=== PATIENT | male | born 1980 | race Caucasian/White ===

== ENCOUNTER → 2016-10-28 | Outpatient (CLI) | payer BC ==
--- NOTE | 2016-10-31 08:43 | RADIOLOGY REPORT PS360 ---
MRI-LOW EXT ANY JOINT W/O-RT HISTORY: Right ankle pain, sprain, strain posteriorly, Achilles tendinitis ACHILLES TENDINITIS, ACUTE RIGHT ANKLE PAIN ORDERING PHYSICIAN: GIUSEPPE HOWARD APRN PATIENT AGE: 36 years COMPARISON: None TECHNIQUE: Standard multiplanar multiecho sequences are performed without contrast. FINDINGS: The Achilles tendon has an unremarkable appearance. No fracture or dislocation. No obvious bone bruise.. There is some heterogeneous isointense T1 and increased T2 signal along the posterior aspect of the ankle joint with some heterogeneous signal intensity of the superior aspect of the posterior talo fibular ligament consistent with sprain or partial tear of this ligament. The anterior talofibular ligament appears intact. There is a small fluid collection posterior to the talocalcaneal joint measuring 17 mm AP and 8 mm cephalad to caudad consistent with bursitis. IMPRESSION: 1. Suspect partial tear versus sprain of the posterior talofibular ligament. 2. Bursitis with fluid collection along the posterior aspect of the talo calcaneal joint 3. The Achilles tendon appears intact
== END ==
LOC: RAD 10-26 16:00
DX: M76.61 Achilles tendinitis, right leg (principal); M25.571 Pain in right ankle and joints of right foot

== ENCOUNTER 2017-04-22 12:18 | Emergency (ER) | payer BC ==
[~2017-04-22] VITALS: Ht 177.8 cm; Wt 120.2 kg
--- OUTSIDE RECORDS SUMMARY | 2017-04-22 12:22 | External Medical Summary Rpt | CCD ---
Author Author , TIM DUMONT Address Unknown Phone Purpose Continuity of Care Document - through 2016
--- OUTSIDE RECORDS SUMMARY | 2017-04-22 12:22 | External Medical Summary Rpt | CCD ---
Demographics Preferred Language Yakut Marital Status Unknown Amish Affiliation Unknown Race Unknown Ethnic Group Unknown Author Author , TIM DUMONT Address Unknown Phone Immunization No patient found.
--- OUTSIDE RECORDS SUMMARY | 2017-04-22 12:22 | External Medical Summary Rpt | CCD ---
Author Author [employer] Address Unknown Phone Unavailable Purpose Continuity of Care Document - through 2016
--- OUTSIDE RECORDS SUMMARY | 2017-04-22 12:22 | External Medical Summary Rpt | CCD ---
Demographics Preferred Language Tajik Marital Status Unknown Druze Affiliation Unknown Race Unknown Ethnic Group Unknown Author Author , TIM DUMONT Address Unknown Phone Immunization No patient found.
--- OUTSIDE RECORDS SUMMARY | 2017-04-22 12:22 | External Medical Summary Rpt ---
Author Author TIM James, [facility] Organization [employer] Address Unknown Phone Unavailable
--- OUTSIDE RECORDS SUMMARY | 2017-04-22 12:22 | External Medical Summary Rpt | CCD ---
Author Author , TIM DUMONT Address Unknown Phone [email or web address] Purpose Continuity of Care Document - through 2016
[2017-04-22] MEDS ORDERED: ZITHROMAX Z-PA250 M2 PO (12:39)
[2017-04-22] MEDS ORDERED: FLONASE ALLERG9.9 ML NS (12:39)
[2017-04-22] MEDS ORDERED: TESSALON PERLE100 M1 PO (12:39)
--- NOTE | 2017-04-22 12:40 | Urgent Treatment Center Report ---
History of Present Issue Date/Time Seen by Provider 04/22/17 1235 Visit Reason Pt arrived: Presenting Problem: Location if Accident: Onset of symptoms date/time:/ or onset unknown for: Have you (or family members/close friends) recently traveled outside the [place]? If Yes, where/when: Have you had exposure to infectious disease within the past month? TB? Other? Specify: Source patient, RN notes reviewed Exam Limitations no limitations Comment 36-year-old male presents with body aches, chills, cough, nasal congestion with green discharge and headaches. ALLERGIES Coded Allergies: ibuprofen (04/22/17) History Medical History General Angina: No MS: No Hypertension? No Hyperlipidemia? No CHF? No COPD? No Asthma? No CVA? No Seizures? No Diabetes? No GB Disease: No MRSA? No TB? No Cancer? No Surgical Hx Previous Surgery?N Social History Alcohol Alcohol: No Review of Systems All Other Systems Reviewed and Negative ENT see HPI, nose discharge, nose congestion. Respiratory see HPI, cough Physical Exam Vital Signs Vital Signs Date Time Temp Pulse Resp B/P Pulse O2 O2 Flow FiO2 Ox Delivery Rate 04/22 1228 98.2 86 20 127/84 100 - WBC >12,000 or <4,000 or 10% bands? 2 or more SIRS Criteria Met? B/P:127/84 MAP:98 Creatinine >2.0? UA output<0.5ml/kg/hr for 2 hrs? Platelet count >100,000? Lactate >2.0mmol/1? INR >1.2 or PTT > than 60 sec? Evidence of Organ Dysfunction? Provider documented clinical suspician of infection? Sepsis Criteria Count: 1 Sepsis Risk: General Appearance normal appearance, no apparent distress Eye Exam - bilateral eye normal exam, bilateral eye PERRL, bilateral eye EOMI Ear, Nose, Throat hearing grossly normal, sinus pain/drainage, nasal congestion, tonsillar exudate Neck normal inspection, non-tender, full range of motion Respiratory Status Yes: trachea midline, chest symmetrical, non tender chest. No: respiratory distress. Lung Sounds bilateral: normal breath sounds, lungs clear. Cardiovascular normal exam, regular rate/rhythm, no peripheral edema Neurologic alert, normal exam, oriented x 3 Medical Decision Making LABS/Meds/Orders Pt receiving controlled substance in ED? No Departure Departure Time of Disposition 1236 Disposition DC Home or Self Care(routine) Clinical Impression Primary Impression: Sinusitis Qualifiers: Sinusitis location: maxillary Chronicity: acute Recurrence: non- recurrent Qualified Code: J01.00 - Acute maxillary sinusitis, unspecified Secondary Impressions: Cough Condition STABLE Referrals Madi Herrera MD (Family) Patient Instructions DI for Sinusitis Additional Instructions Tylenol as needed for fever/comfort follow-up with PCP this week Medications as ordered Symptoms worsen or do not improve return or be seen in the ER Increase fluids Discharge Counseling Counseled pt/family regarding diagnosis, medications/RX, home care, follow up needs Prescriptions Current Visit Scripts Azithromycin (Zithromax) 250 MG PO DAILY 5 Days USE DIRECTED. Benzonatate (Tessalon Perle) 100 MG PO BIDP PRN COUGH 5 Days Fluticasone Propionate (Flonase Allergy Relief) 9.9 ML NS DAILY 14 Days at [id number]
[2017-04-22 13:00] VITALS: BP 127/84
[2017-04-22 14:01] LABS: UTC STREP SCREEN NOT DETECTED (NOTDETECTED)
== END 2017-04-22 13:01 | disposition home or self-care (01) ==
LOC: UTC 12:18
PROVIDERS: Nurse Practitioner Family
DX: J01.00 Acute maxillary sinusitis, unspecified (principal); R05 Cough; Z88.6 Allergy status to analgesic agent

== ENCOUNTER → 2017-06-08 | Outpatient (CLI) | payer BC ==
[~2017-06-08] MED LIST: FLONASE ALLERG9.9 ML NS; TESSALON PERLE100 M1 PO; ZITHROMAX Z-PA250 M2 PO
[2017-06-08 16:53] LABS: BUN 12 mg/dL (7-18); GFR (ESTIMATED) 95 ML/MIN (>60); PROSTATE-SPECIFIC AG SCREEEN 0.8 ng/mL (0.0-4.0)
== END ==
LOC: LAB 12:13
PROVIDERS: Internal Medicine Adolescent Medicine
DX: E78.5 Hyperlipidemia, unspecified (principal); E66.9 Obesity, unspecified
CPT/HCPCS: G0103